=== PATIENT | male | born 1955 | race Caucasian/White ===

== ENCOUNTER 2022-12-12 04:22 | Emergency (ER) | payer BC ==
[2022-12-12 05:18] LABS: #Basophils 0.1 thou/uL (0.0-0.2); #Eosinphils 0.2 thou/uL (0.0-0.7); #Lymphocytes 1.5 thou/uL (1.20-3.40); #Monocytes 0.7 thou/uL (0.11-0.59); %Basophils 0.7 % (0.0-1.0); %Eosinophils 2.4 % (0.0-10.0); %Lymphocytes 17.4 % (21.0-51.0); %Monocytes 8.1 % (0.0-10.0); %Neutrophils 71.3 % (42.0-75.0); Hemoglobin 13.6 g/dL (14.0-18.0); Mean Corpuscular HGB CONC 33.1 g/dL (32.0-36.0); Mean Corpuscular Hemoglobin 29.9 pg (27.0-31.0); Mean Corpuscular Volume 90.2 fl (78.0-98.0); Mean Platelet Volume 9.5 fL (7.4-10.4); Platelet Count 294 10x3/uL (130-400); Red Blood Cell (RBC) Count 4.55 mill/uL (4.70-6.10); White Blood Cell (WBC) Count 8.4 10x3/uL (4.8-10.8)
[2022-12-12 05:33] LABS: ALT (SGPT) 22 U/L (8-55); AST (SGOT) 22 U/L (5-34); Albumin 4.4 g/dL (3.4-4.8); Alkaline Phosphatase 75 U/L (40-110); Anion Gap 13 mmol/L (10-20); BUN (Urea Nitrogen) 13 mg/dL (8.4-25.7); Bilirubin, Total 1.1 mg/dL (0.2-1.2); Calc. Creatinine Clearance 0 mL/min (70-130); Calcium 8.9 mg/dL (7.8-10.44); Carbon Dioxide 23 mmol/L (23-31); Chloride 104 mmol/L (98-107); Estimated GFR 73; Globulin 3.2 g/dL (2.4-3.5); Glucose 117 mg/dL (80-115); Potassium 3.4 mmol/L (3.5-5.1); Protein, Total 7.6 g/dL (5.8-8.1); Sodium 137 mmol/L (136-145)
[2022-12-12] MEDS ORDERED: Iopamidol-370 76% 500 ML 1 ML ONE (12:45)
== END 2022-12-12 07:06 | disposition home or self-care (01) ==
LOC: ERS 04:22
DX: R07.9 Chest pain, unspecified (principal); R60.9 Edema, unspecified; I10 Essential (primary) hypertension
CPT/HCPCS: 71045; 71275; 80053; 84484; 85025; 93005; Q9967